=== PATIENT | female | born 1930 | race Caucasian/White ===

== ENCOUNTER 2017-02-15 21:56 | Inpatient (IN) | payer OTHER ==
[2017-02-15 22:22] VITALS: BMI 22.2
[2017-02-15 22:42] LABS: BASOPHIL 0.3 % (0-2.0); EOSINOPHIL 0.1 % (0-4.5); MCH 31.7 pg (25.7-33.7); MCHC 31.7 g/dl (32.0-36.0); MEAN PLT VOLUME 8.4 fl (7.5-11.1); NEUTROPHILS 87.1 % (42.8-82.8); PLATELET COUNT 211 K/MM3 (134-434); RDW 16.2 % (11.6-15.6); WHITE BLOOD COUNT 9.5 K/mm3 (4.0-10.0)
[2017-02-15] MEDS ORDERED: PIPERACILLIN/TAZOB 3.375 GM/50 ML PRE-DOCKED IVPB ONE (23:01)
[2017-02-15] MEDS ORDERED: VANCOMYCIN 1,000 MG in DEXTROSE 5%-WATER - 250 ML IVPB ONE (23:01)
[2017-02-15] MEDS ORDERED: PIPERACILLIN/TAZOB 3.375 GM 50 ML IVPB ONE (23:10)
[2017-02-15 23:25] LABS: ALBUMIN 3.5 g/dl (3.4-5.0); ANION GAP 9 (8-16); BILIRUBIN,TOTAL 0.4 mg/dL (0.2-1.0); CALCIUM 8.6 mg/dL (8.5-10.1); CO2 31 mmol/L (21-32); CREATININE 0.7 mg/dL (0.55-1.02); GLUCOSE,RANDOM 232 mg/dL (74-106); SGOT/AST 12 U/L (15-37); SGPT/ALT 16 U/L (12-78); TOT PROT 7.6 g/dl (6.4-8.2)
[2017-02-15 23:28] LABS: ALK PHOS 103 U/L (45-117); TROPONIN I 0.08 ng/ml (0.00-0.05)
[2017-02-15] MEDS ORDERED: FUROSEMIDE 40 MG/4 ML INJECTABLE VIAL IVPB ONE (23:56)
--- NOTE | 2017-02-16 00:30 | PDOC ---
History of Present Illness - General History Source: EMS, Old Records Exam Limitations: Clinical Condition, Unresponsive - History of Present Illness Initial Comments: 02/16/17 00:50 The patient is a 87 year old female brought via EMS from [facility], with a significant past medical history of Pacemaker, CAD, GERD, HTN and alzhimers, who presents to the emergency department with respiratory distress. As per EMS the patient was found unresponsive by the nursing staff prior to calling EMS. The patient arrived in the ED at 9:56pm. EMS states that the patient's vitals on route were; BP: 140/80 HR: 80 bpm O2 sat: 70 The patient is DNR / DNI as per the care home records. Vitals at 10:00pm HR: 80 bpm O2 sat: 80 Allergies: None Past surgical history: None reported Social history: No alcohol, tobacco or drug use reported <Ford Lopez - Last Filed: 02/16/17 00:52> - General History Source: Patient Exam Limitations: No Limitations <Bill Roth - Last Filed: 02/16/17 01:39> - General Chief Complaint: Respiratory Stated Complaint: RESPISTORY DISTRESS Time Seen by Provider: 02/15/17 22:08 Past History <Ford Lopez - Last Filed: 02/16/17 00:52> - Psycho/Social/Smoking Cessation Hx Suicidal Ideation: No Smoking History: Unknown if ever smoked Have you smoked in the past 12 months: No Information on smoking cessation initiated: No Hx Alcohol Use: No Drug/Substance Use Hx: No <Bill Roth - Last Filed: 02/16/17 01:39> - Past Medical History Allergies/Adverse Reactions: Allergies Allergy/AdvReac Type Severity Reaction Status Date / Time No Known Allergies Allergy Verified 02/15/17 22:19 Review of Systems - Review of Systems Able to Perform ROS?: No Comments:: 02/16/17 00:53 Unable to obtain ROS due to patient being unresponsive <Ford Lopez - Last Filed: 02/16/17 00:52> *Physical Exam - Vital Signs Last Vital Signs Temp Pulse Resp BP Pulse Ox 70 28 H 135/60 86 L 02/15/17 23:22 02/15/17 23:22 02/15/17 23:22 02/15/17 23:22 - Physical Exam Comments: 02/16/17 00:53 GENERAL: +Ill apearing, tachypnic. HEAD: No signs of trauma, normocephalic, atraumatic EYES: PERRLA, EOMI, sclera anicteric, conjunctiva clear ENT: Auricles normal inspection, hearing grossly normal, nares patent, oropharynx clear without exudates. Dry mucosa NECK: Normal ROM, supple, no lymphadenopathy, JVD, or masses LUNGS: +Accessory muscles use for breathing HEART: Regular rate and rhythm, normal S1 and S2, no murmurs, rubs or gallops, peripheral pulses normal and equal bilaterally. ABDOMEN: Soft, nontender, normoactive bowel sounds. No guarding, no rebound. No masses EXTREMITIES: Normal inspection, Normal range of motion, no edema. No clubbing or cyanosis. NEUROLOGICAL: AO x 0 SKIN: Warm, Dry, normal turgor, no rashes or lesions noted. <Ford Lopez - Last Filed: 02/16/17 00:52> - Vital Signs Last Vital Signs Temp Pulse Resp BP Pulse Ox 70 28 H 135/60 86 L 02/15/17 23:22 02/15/17 23:22 02/15/17 23:22 02/15/17 23:22 <Bill Roth - Last Filed: 02/16/17 01:39> Heart Score/ECG Review #1 ECG reviewed & interpreted by me at: 01:00 02/16/17 01:39 NSR 70, nonspecific ST abnormality, QTC 434 msec <Bill Roth - Last Filed: 02/16/17 01:39> ED Treatment Course - LABORATORY CBC & Chemistry Diagram: 02/15/17 22:30 02/15/17 22:30 - ADDITIONAL ORDERS Additional order review: Laboratory Results 02/15/17 22:30 Sodium 146 H Potassium 4.4 Chloride 106 Carbon Dioxide 31 Anion Gap 9 BUN 19 H Creatinine 0.7 Creat Clearance w eGFR > 60 Random Glucose 232 H Calcium 8.6 Total Bilirubin 0.4 AST 12 L ALT 16 Alkaline Phosphatase 103 Creatine Kinase 58 Troponin I 0.08 H B-Natriuretic Peptide 751.87 H Total Protein 7.6 Albumin 3.5 02/15/17 22:30 RBC 4.75 MCV 100.0 H MCHC 31.7 L RDW 16.2 H MPV 8.4 Neutrophils % 87.1 H Lymphocytes % 9.4 Monocytes % 3.1 L Eosinophils % 0.1 Basophils % 0.3 - Medications Given in the ED: ED Medications Discontinued Medications Generic Name Dose Route Start Last Admin Trade Name Freq PRN Reason Stop Dose Admin Piperacillin Sod/Tazobactam Sod 3.375 gm 02/15/17 23:01 02/15/17 23:15 Zosyn 3.375gm Ivpb (Pre-Docked) IVPB 02/15/17 23:02 3.375 gm ONCE ONE Administration Protocol <Ford Lopez - Last Filed: 02/16/17 00:52> - LABORATORY CBC & Chemistry Diagram: 02/15/17 22:30 02/15/17 22:30 - ADDITIONAL ORDERS Additional order review: Laboratory Results 02/15/17 22:30 Sodium 146 H Potassium 4.4 Chloride 106 Carbon Dioxide 31 Anion Gap 9 BUN 19 H Creatinine 0.7 Creat Clearance w eGFR > 60 Random Glucose 232 H Calcium 8.6 Total Bilirubin 0.4 AST 12 L ALT 16 Alkaline Phosphatase 103 Creatine Kinase 58 Troponin I 0.08 H B-Natriuretic Peptide 751.87 H Total Protein 7.6 Albumin 3.5 02/15/17 22:30 RBC 4.75 MCV 100.0 H MCHC 31.7 L RDW 16.2 H MPV 8.4 Neutrophils % 87.1 H Lymphocytes % 9.4 Monocytes % 3.1 L Eosinophils % 0.1 Basophils % 0.3 - RADIOLOGY Radiology Studies Ordered: Category Date Time Status CHEST X-RAY PORTABLE* [RAD] Stat Radiology 02/15/17 22:11 Taken - Medications Given in the ED: ED Medications Discontinued Medications Generic Name Dose Route Start Last Admin Trade Name Freq PRN Reason Stop Dose Admin Piperacillin Sod/Tazobactam Sod 3.375 gm 02/15/17 23:01 02/15/17 23:15 Zosyn 3.375gm Ivpb (Pre-Docked) IVPB 02/15/17 23:02 3.375 gm ONCE ONE Administration Protocol <Bill Roth - Last Filed: 02/16/17 01:39> Medical Decision Making - Medical Decision Making 02/16/17 00:54 Dr. Lalita Gaffney was consulted regarding the patient at 10:20pm [phone] <Ford Lopez - Last Filed: 02/16/17 00:52> - Critical Care Time Total Critical Care Time (minutes): 35 Critical Care Statement: The care of this patient involved high complexity decision making to prevent further life threatening deterioration of the patient 's condition and/or to evalute & treat vital organ system(s) failure or risk of failure. - Medical Decision Making 02/16/17 00:04 A portion of this note was documented by scribe services under my direction. I have reviewed the details of the note, within reason, and agree with the documentation with the following case summary and management plan written by me. Patient treated in the ED. Nursing notes are reviewed and incorporated into the medical decision-making. Vital signs reviewed. Peripheral IV access obtained by the nurse, laboratory studies are drawn and sent, reviewed and interpreted by myself. Vital Signs Temp Pulse Resp BP Pulse Ox 70 28 H 135/60 86 L 02/15/17 23:22 02/15/17 23:22 02/15/17 23:22 02/15/17 23:22 87-year-old female with past medical history of coronary artery disease, pacemaker, anemia, acid reflux, dementia, hypertension presents with altered mental status, unresponsiveness, respiratory failure. The patient has been taking 2 nebs and Levaquin for an upper respiratory infection. They noted today , that the patient was unresponsive and in respiratory distress. Patient was called by EMS and brought to the ED and was seen immediately by me. Patient was noted to be in significant respiratory distress and was in a state that needed to be intubated. However, patient has paperwork with her that reports a DNR and DNI and comfort measures. This paperwork signed by primary care physician Dr. Iris Adames and patient's family member Adrian Baig. I had attempted to reach out to the family by phone numbers listed in the electronic medical record but nobody had picked up. The patient was placed on BiPAP given respiratory distress. Occupation is improved but the patient continues to remain ill-appearing. In the interim, the patient had vomited from the BiPAP and was taken off and placed on nonrebreather. She was started on vancomycin and Zosyn. Patient is ill- appearing and has poor prognosis. Case was discussed with Dr. Wally Androne. He accepts the patient to be admitted to the hospital. Case was discussed with ICU nurse practitioner Rosario who accepts the patient to the intensive care unit. CBC, BMP 02/15/17 22:30 02/15/17 22:30 CMP Sodium 146 mmol/L (136-145) H 02/15/17 22:30 Potassium 4.4 mmol/L (3.5-5.1) 02/15/17 22:30 Chloride 106 mmol/L (98-107) 02/15/17:30 Carbon Dioxide 31 mmol/L (21-32) 02/15/17:30 Anion Gap 9 (8-16) 02/15/17:30 BUN 19 mg/dL (7-18) H 02/15/17:30 Creatinine 0.7 mg/dL (0.55-1.02) 02/15/17:30 Creat Clearance w eGFR > 60 (>60) 02/15/17:30 Random Glucose 232 mg/dL (74-106) H 02/15/17:30 Calcium 8.6 mg/dL (8.5-10.1) 02/15/17:30 Total Bilirubin 0.4 mg/dL (0.2-1.0) 02/15/17:30 AST 12 U/L (15-37) L 02/15/17:30 ALT 16 U/L (12-78) 02/15/17:30 Alkaline Phosphatase 103 U/L (45-117) 02/15/17:30 Creatine Kinase 58 IU/L (26-192) 02/15/17:30 Troponin I 0.08 ng/ml (0.00-0.05) H 02/15/17 22:30 B-Natriuretic Peptide 751.87 pg/ml (5-450) H 02/15/17:30 Total Protein 7.6 g/dl (6.4-8.2) 02/15/17:30 Albumin 3.5 g/dl (3.4-5.0) 02/15/17:30 Chest xray reviewed, pending official read. Infiltrate vs. pulm vasc congestion. Lasix ordered. Again, pt is ill-appearing. Will continue to observe. Case discussed in detail with admitting physician including history, physical exam and ancillary studies. Admitting physician has assumed care for the patient, will follow all pending diagnostics and will complete the evaluation and treatment. <Bill Roth - Last Filed: 02/16/17 01:39> *DC/Admit/Observation/Transfer - Attestations Scribe Attestion: 02/16/17 00:54 Documentation prepared by Ford Lopez, acting as medical doctor for Bill Roth MD <Ford Lopez - Last Filed: 02/16/17 00:52> - Discharge Dispostion Admit: Yes <Bill Roth - Last Filed: 02/16/17 01:39> Diagnosis at time of Disposition: Respiratory failure Qualifiers: Chronicity: acute Respiratory failure complication: unspecified whether with hypoxia or hypercapnia Qualified Code(s): J96.00 - Acute respiratory failure, unspecified whether with hypoxia or hypercapnia
[2017-02-16] MEDS ORDERED: FUROSEMIDE 40 MG/4 ML INJECTABLE VIAL ONE (01:01)
[2017-02-16] MEDS ORDERED: VANCOMYCIN 1 GRAM (PRE-DOCKED) 250 ML IVPB ONE (01:02)
[2017-02-16] MEDS ORDERED: ALBUTEROL SO4 2.5/IPRATROPIUM 0.5 INH SOL 3 ML VIAL.NEB. NEB PRN (07:00)
[2017-02-16] MEDS ORDERED: ACETAMINOPHEN 325 MG TABLET (FP) PO SCH (07:00)
[2017-02-16 08:02] VITALS: TEMP 94.2
[2017-02-16] MEDS ORDERED: METOPROLOL SUCCINATE 50 MG TAB.SR.24H (FP) PO SCH (10:00)
[2017-02-16] MEDS ORDERED: ASPIRIN 81 MG CHEWABLE TABLETS PO SCH (10:00)
[2017-02-16] MEDS ORDERED: SODIUM CHLORIDE 1,000 ML IV SCH ×2 (10:00→10:01)
[2017-02-16] MEDS ORDERED: HEPARIN NA (PORCINE) 5,000 UNITS/ML 1ML VIAL SQ SCH (10:00)
--- NOTE | 2017-02-16 10:02 | HP ---
Admitting History and Physical - Primary Care Physician PCP: Lalita Gaffney S - Admission Chief Complaint: sent from [place] for respiratory distress, unresponsive History of Present Illness: The patient is a 87 year old female brought via EMS from [facility], with a significant past medical history of Pacemaker, CAD, GERD, HTN and alzhimers, who presents to the emergency department with respiratory distress. As per EMS the patient was found with decreased mental status by the nursing staff prior to calling EMS. The [facility] nurse called me last evening that pt (who has advanced dementia nonverbal at baseline but arousable) was not arousable and sounded congested, I ordered transfer to ER but nurse said she spoke with pt' s family nephew and he did not want to transfer her out, pt is DNR DNI so he wanted comfort care only in [place] and I ordered O2, CXR, nebs albuterol prn; then about 1 hour later nurse called me back that pt's nephew changed his mind and wanted to transfer pt to ER so she was transferred via 911 EMS to [facility]. In ER recevied nebs, O2, lasix IV had labs and CXR, and IV ATB. I saw pt in [facility] ER together with ICU dr Shannon at bedside, pt nonverbal , eyes closed, not following any commands. Pt on O2 facemask supplement seemed comfortable not in distress; low BP, HR 50s ; I ordered IVF and IV ATB Pt is DNR DNI comfort care per [place] papers, I also spoke with pt;s nephew Adrian Baig at [phone] who is her guardian and confirmed DNR DNI no intubation if pt stops breathing or if pt in respiratory distress, no chest compressions no cardiac resuscitation, no aggressive measures, comfort care only. Per Adrian, he is pt's closest relative alive. I also called Misael Roth at [facility] who is in charge of this pt [phone] she is aware of DNR DNI. Lopressor held today. 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 (advnaced nonverbal at bedside) Cardiovascular: Yes: CAD - Smoking History Smoking history: Unknown if ever smoked Have you smoked in the past 12 months: No - Alcohol/Substance Use Hx Alcohol Use: No History of Substance Use: reports: None - Social History Usual Living Arrangement: Yes: [facility] History of Recent Travel: No Home Medications - Allergies Allergies/Adverse Reactions: Allergies Allergy/AdvReac Type Severity Reaction Status Date / Time No Known Allergies Allergy Verified 02/15/17 22:19 - Home Medications Home Medications: Ambulatory Orders Acetaminophen [Tylenol] 650 mg PO PRN 02/16/17 Albuterol 2.5/Ipratropium 0.5 [Duoneb -] 1 neb NEB Q4H 02/16/17 Aspirin [ASA -] 81 mg PO DAILY 02/16/17 Metoprolol Succinate [Toprol Xl] 50 mg PO DAILY 02/16/17 Family Disease History - Family Disease History Family History: Unremarkable Review of Systems - Review of Systems Constitutional: reports: Lethargy. denies: Chills, Fever HENT: denies: Ear Discharge, Epistaxis Cardiovascular: reports: Shortness of Breath Respiratory: reports: Cough, SOB Gastrointestinal: denies: Rectal Bleeding, Vomiting Blood Genitourinary: denies: Hematuria Neurological: denies: Pre-Existing Deficit Hematology/Lymphatic: denies: Easily Bruised, Excessive Bleeding Physical Examination Vital Signs: Vital Signs Temperature 94.2 F L 02/16/17 08:01 Pulse Rate 45 L 02/16/17 08:42 Respiratory Rate 24 02/16/17 08:42 Blood Pressure 76/47 02/16/17 08:42 O2 Sat by Pulse Oximetry (%) 93 L 02/16/17 08:42 Constitutional: Yes: Other (unresponsive) Eyes: Yes: Conjunctiva Clear HENT: Yes: Atraumatic Neck: Yes: Supple. No: Tenderness Cardiovascular: Yes: Bradycardia Respiratory: Yes: Diminished Gastrointestinal: Yes: Soft. No: Distention, Tenderness Musculoskeletal: No: Joint Stiffness, Joint Swelling Extremities: No: Cold, Cool Edema: No Peripheral Pulses WNL: Yes (weak) Integumentary: No: Rash, Venous Stasis Changes Neurological: No: WNL (functional quadriplegia bed bound), Alert Psychiatric: No: Alert, Agitated Imaging - Results Chest X-ray: Report Reviewed Other: Report Reviewed Assessment/Plan The patient is a 87 year old female brought via EMS from [facility], with a significant past medical history of Pacemaker, CAD, GERD, HTN and alzhimers, who presents to the emergency department with respiratory distress possible Pneumonia and unresponsive, borderline high Troponin; DNR DNI admit to ICU/ telemetry IVF gentle hydration IV antibiotics nebs prn; O2 as ordered Pulm ICU and cardiology consults called. prognosis poor d/w nephew do not intubate no cardiac resuscitation; comfort care only; also d/ w [facility]. d/w ICU dr Shannon t time 75
[2017-02-16] MEDS ORDERED: PIPERACILLIN/TAZOB 3.375 GM 50 ML IVPB ONE ×2 (10:15→10:37)
[2017-02-16] MEDS ORDERED: HEPARIN NA (PORCINE) 5,000 UNITS/ML 1ML VIAL ONE (10:37)
[2017-02-16] MEDS ORDERED: INSULIN SLIDING SCALE (NOVOLOG) 1 VIAL SQ SCH (11:00)
--- NOTE | 2017-02-16 11:25 | ED.PROV ---
Physicial Exam I saw and examined the patient. - Vital Signs Last Vital Signs Temp Pulse Resp BP Pulse Ox 94.2 F L 45 L 24 76/47 93 L 02/16/17 08:01 02/16/17 08:42 02/16/17 08:42 02/16/17 08:42 02/16/17 08:42 - Physical Exam Reason for Response: 02/16/17 11:23 Called to examine by nurse She is pulseless, demonstrates Asystole on monitor Pt is DNR/DNI Pt passed at 11:[address] Gaffney
[2017-02-16 11:26] VITALS: BP 44/30; PULSE 31
--- NOTE | 2017-02-16 11:37 | EKG ---
Test Reason : Blood Pressure : / mmHG Vent. Rate : 070 BPM Atrial Rate : 070 BPM P-R Int : 168 ms QRS Dur : 088 ms QT Int : 402 ms P-R-T Axes : 066 058 008 degrees QTc Int : 434 ms NORMAL SINUS RHYTHM NONSPECIFIC ST ABNORMALITY ABNORMAL ECG WHEN COMPARED WITH ECG OF 15-SEP-2011 08:59, SINUS RHYTHM HAS REPLACED ELECTRONIC VENTRICULAR PACEMAKER Confirmed by ALIN OWENS, TANJA ([id number]) on 02/16/2017 11:36:48 AM Referred By: Confirmed By:TANJA OGDEN MD
--- NOTE | 2017-02-16 12:58 | DS ---
Physical Examination Vital Signs: Vital Signs Temperature 94.2 F L 02/16/17 08:01 Pulse Rate 31 L 02/16/17 10:15 Respiratory Rate 29 H 02/16/17 10:15 Blood Pressure 44/30 02/16/17 10:15 O2 Sat by Pulse Oximetry (%) 91 L 02/16/17 09:30 Findings/Remarks: I was called by ER nurse that pt ; I called pt's nephew Adrian to inform him and also spoke with Misael. No autopsy requested by Adrian. See previous note from today H&P> Discharge Summary Reason For Visit: RESPISTORY FAILURE Current Active Problems Respiratory failure (Acute) Procedures: Principal: respiratory failure Other Procedures: ASHD, PPM Hospital Course: IV antibiotics, O2 NC, IVF, nebs; DNR DNI; . Condition: - Instructions Disposition: - Home Medications Comprehensive Discharge Medication List: Ambulatory Orders Acetaminophen [Tylenol] 650 mg PO PRN 02/16/17 Albuterol 2.5/Ipratropium 0.5 [Duoneb -] 1 neb NEB Q4H 02/16/17 Aspirin [ASA -] 81 mg PO DAILY 02/16/17 Metoprolol Succinate [Toprol Xl] 50 mg PO DAILY 02/16/17
--- NOTE | 2017-02-16 17:10 | CON.PULM ---
Consult Consult Specialty:: PULM/CCM Referred by:: PMD Reason for Consultation:: Respiratory Failure - History of Present Illness Chief Complaint: AMS History of Present Illness: Patient seen and examined earlier in the ER. Called to assess for ICU care. 87 F, PPM, CAD, GERD, HTN and alzheimers. Sent to the ER due to respiratory distress. As per EMS report, the patient was found with decreased mental status and respiratory distress. In the ER a CXR, albuterol, and IV Lasix was given. I saw the patient with PMD in the ER. She is DNR / DNI. Currently agonal breathing. Family was spoken to and confirmed DNR / DNI. No intubation if pt stops breathing or if pt in respiratory distress, no chest compressions no cardiac resuscitation, no aggressive measures, comfort care only. 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 (advnaced nonverbal at bedside) Cardio/Vascular: Yes: CAD - Alcohol/Substance Use Hx Alcohol Use: No History of Substance Use: reports: None - Smoking History Smoking history: Unknown if ever smoked Have you smoked in the past 12 months: No - Social History History of Recent Travel: No Home Medications - Allergies Allergies/Adverse Reactions: Allergies Allergy/AdvReac Type Severity Reaction Status Date / Time No Known Allergies Allergy Verified 02/15/17 22:19 - Home Medications Home Medications: Ambulatory Orders Acetaminophen [Tylenol] 650 mg PO PRN 02/16/17 Albuterol 2.5/Ipratropium 0.5 [Duoneb -] 1 neb NEB Q4H 02/16/17 Aspirin [ASA -] 81 mg PO DAILY 02/16/17 Metoprolol Succinate [Toprol Xl] 50 mg PO DAILY 02/16/17 Review of Systems Unable to obtain ROS, reason: not able to obtain Physical Exam Vital Sings: Vital Signs Temperature 94.2 F L 02/16/17 08:01 Pulse Rate 31 L 02/16/17 10:15 Respiratory Rate 29 H 02/16/17 10:15 Blood Pressure 44/30 02/16/17 10:15 O2 Sat by Pulse Oximetry (%) 91 L 02/16/17 09:30 Constitutional: Yes: Moderate Distress Eyes: Yes: Conjunctiva Clear HENT: Yes: Atraumatic, Normocephalic Neck: Yes: Supple, Trachea Midline Cardiovascular: Yes: Tachycardia Respiratory: Yes: Accessory Muscle Use, Diminished, Poor Air Entry, Rhonchi ...Clubbing: No Gastrointestinal: Yes: Normal Bowel Sounds, Soft Musculoskeletal: Yes: WNL Edema: No Peripheral Pulses WNL: Yes Neurological: Yes: Confusion Imaging - Results Chest X-ray: Report Reviewed, Image Reviewed Problem List - Problems (1) Respiratory failure Code(s): J96.90 - RESPIRATORY FAILURE, UNSP, UNSP W HYPOXIA OR HYPERCAPNIA Qualifiers: Chronicity: acute Respiratory failure complication: unspecified whether with hypoxia or hypercapnia Qualified Code(s): J96.00 - Acute respiratory failure, unspecified whether with hypoxia or hypercapnia Assessment/Plan PLAN: For compassionate/supportive care only. Dr Shannon
[2017-02-16] MEDS ORDERED: PIPERACILLIN/TAZOB 3.375 GM 3.375 GM in DEXTROSE 5%-WATER - 50 ML IVPB SCH (18:00)
== END 2017-02-16 11:31 | disposition expired | DRG 189 ==
LOC: JER 21:56 → JERBED 02-16 00:34 → UNDOADMIN 02-16 00:49 → JERBED 02-16 00:49
PROVIDERS: ADMIT Internal Medicine; ATTEND Internal Medicine
PROC: 5A09357 Assistance with Respiratory Ventilation, Less than 24 Consecutive Hours, Continuous Positive Airway Pressure (ICD-10-PCS; principal; 2017-02-15)
DX: J96.00 Acute respiratory failure, unspecified whether with hypoxia or hypercapnia (principal); J18.9 Pneumonia, unspecified organism; I25.10 Atherosclerotic heart disease of native coronary artery without angina pectoris; I10 Essential (primary) hypertension; K21.9 Gastro-esophageal reflux disease without esophagitis; D64.9 Anemia, unspecified; G30.9 Alzheimer's disease, unspecified; F02.80 Dementia in other diseases classified elsewhere, unspecified severity, without behavioral disturbance, psychotic disturbance, mood disturbance, and anxiety; Z95.0 Presence of cardiac pacemaker; Z66 Do not resuscitate
CPT/HCPCS: 36415; 71010-TC; 80053; 82550; 83880; 84484; 85025; 87040; 93005; 93010; 99284-25; J1644